=== PATIENT | male | born 1980 | race Caucasian/White ===

== ENCOUNTER 2018-05-11 07:47 | Day surgery (SDC) | payer OTHER ==
[2018-05-11] MEDS ORDERED: PROPOFOL 200 MG/20 ML VIAL As Ordered (08:01)
[2018-05-11] MEDS ORDERED: MOXIFLOXACIN IN BSS 0.25MG/0.25ML INTRACAMERAL INJ (OR EYE ONLY)(J2280) As Ordered (08:07)
[2018-05-11] MEDS ORDERED: POVIDONE-IODINE 5% OPHTH PREP SOL 30ML As Ordered (08:07)
[2018-05-11] MEDS ORDERED: LIDOCAINE 1% SDV 5 ML VIAL As Ordered (08:07)
[2018-05-11] MEDS ORDERED: HEALON DUET (HEALON 10MG/ML 0.55ML & HEALON ENDOCOAT 30MG/ML 0.85ML) As Ordered (08:07)
[2018-05-11] MEDS ORDERED: TRIAMCINOLONE PRES FR 40 MG/ML 1ML(TRIESENCE)(OR EYE ONLY)(J3300 PER 1MG) As Ordered (08:07)
[2018-05-11] MEDS ORDERED: LIDOCAINE 2% INJ 100 MG/5 ML SDV (FOR ANES.) As Ordered (08:08)
[2018-05-11] MEDS: NS 1,000 ML IV (08:13)
== END 2018-05-11 09:32 | disposition home or self-care (01) ==
LOC: M OPP 07:47
DX: R12 Heartburn (principal); R11.0 Nausea; R14.0 Abdominal distension (gaseous); K22.8 Other specified diseases of esophagus; E78.5 Hyperlipidemia, unspecified; E07.9 Disorder of thyroid, unspecified; K21.9 Gastro-esophageal reflux disease without esophagitis; F41.9 Anxiety disorder, unspecified; F32.9 Major depressive disorder, single episode, unspecified; F43.10 Post-traumatic stress disorder, unspecified; K59.00 Constipation, unspecified; R19.7 Diarrhea, unspecified; R56.9 Unspecified convulsions; G47.30 Sleep apnea, unspecified; R06.83 Snoring; Z79.899 Other long term (current) drug therapy
CPT/HCPCS: 43239

== ENCOUNTER 2019-02-16 09:32 | Inpatient (IN) | payer MEDICAID, OTHER ==
[~2019-02-16] VITALS: Ht 170.2 cm; Wt 81.5 kg
[~2019-02-16 09:32] MED LIST: CYMB1CAP5 PO; DEPA500T2 PO; DICL75TA PO; DIVA250T7 PO; FLUO20CA8 PO; IBUP1TAB7 PO; IBUPPOW25 PO; LORA-243 PO; MOTRIN PO; OMEP40CA2 PO; PRAZ1CAP PO; RISP4TAB2 PO; TRAZ-252 PO; ZOLO100T PO
[2019-02-16 11:13] LABS: HEMATOCRIT 41.6 % (42.0-52.0); HEMOGLOBIN 13.7 g/dl (13.5-17.5); MEAN CORPUSCULAR HEMOGLOBIN 28.8 pg (27.0-33.0); MEAN CORPUSCULAR HGB CONC 32.9 g/dl (32.0-36.5); MEAN CORPUSCULAR VOLUME 87.4 fl (80.0-96.0); PLATELET COUNT, AUTOMATED 182 10^3/uL (150-450); RED BLOOD COUNT 4.76 10^6/uL (4.30-6.10); WHITE BLOOD COUNT 4.9 10^3/uL (4.0-10.0)
[2019-02-16 11:48] LABS: AMPHETAMINES LEVEL URINE NEGATIVE (NEGATIVE); BARBITURATES URINE NEGATIVE (NEGATIVE); BENZODIAZEPINES URINE NEGATIVE (NEGATIVE); CANNABINOIDS URINE NEGATIVE (NEGATIVE); COCAINE METABOLITE URINE NEGATIVE (NEGATIVE); METHADONE URINE NEGATIVE (NEGATIVE); OPIATES URINE NEGATIVE (NEGATIVE); PHENCYCLIDINE URINE NEGATIVE (NEGATIVE)
[2019-02-16 11:50] LABS: ACETAMINOPHEN LEVEL < 2.0 UG/ML (10.0-30.0); ALBUMIN 3.7 GM/DL (3.2-5.2); ALT/SGPT 19 U/L (12-78); BILIRUBIN,DIRECT < 0.1 MG/DL (0.0-0.2); BILIRUBIN,TOTAL 0.3 MG/DL (0.2-1.0); BLOOD UREA NITROGEN 21 MG/DL (7-18); CARBON DIOXIDE LEVEL 29 MEQ/L (21-32); CHLORIDE LEVEL 107 MEQ/L (98-107); CREATININE FOR GFR 1.13 MG/DL (0.70-1.30); ETHYL ALCOHOL (ETHANOL) < 0.003 % (0.000-0.010); GLOMERULAR FILTRATION RATE > 60.0 (>60); GLUCOSE, FASTING 94 MG/DL (70-100); POTASSIUM SERUM 4.4 MEQ/L (3.5-5.1); SALICYLATE LEVEL < 1.7 MG/DL (5.0-30.0); SODIUM LEVEL 140 MEQ/L (136-145); TOTAL PROTEIN 6.9 GM/DL (6.4-8.2)
[2019-02-16] MEDS ORDERED: MOM 30ML SUSPENSION UDC PO PRN (15:45)
[2019-02-16] MEDS ORDERED: ACETAMINOPHEN TAB 650MG DOSE (2X325MG) PO PRN (15:45)
[2019-02-16] MEDS ORDERED: MAALOX 30 ML SUSP *UDC PO PRN (15:45)
[2019-02-16 20:49] VITALS: BP 127/72
[2019-02-16] MEDS: traZODone 50 MG TAB PO PRN (21:04)
[2019-02-16] MEDS: risperiDONE 2 MG TAB PO SCH (21:04)
[2019-02-17 06:29] VITALS: BP 119/68
[2019-02-17] MEDS: FLUoxetine 20 MG CAP PO SCH (09:14)
[2019-02-17] MEDS: OMEPRAZOLE 20 MG CAP PO SCH (09:14)
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
[2019-02-17 18:02] VITALS: BP 109/53
[2019-02-17] MEDS: traZODone 50 MG TAB PO PRN (20:17)
[2019-02-17] MEDS: risperiDONE 2 MG TAB PO SCH (20:17)
--- NOTE | 2019-02-17 21:44 | HPEPDOC ---
General Date of Admission Feb 16, 2019 at 15:39 Date of Service: Feb 17, 2019 Chief Complaint The patient is a 39-year-old male admitted with a reason for visit of Depressive Disorder. Source: Patient History of Present Illness 39 yo M with no known PMH was brought in to the inpatient psychiatric unit for suicidal ideation. The patient expressed the wish of killing himself by shooting him. The patient denies any medical or physical history. Currently, the patient does not have any complaints. Home Medications No Active Prescriptions or Reported Meds Allergies Coded Allergies: No Known Allergies (Unverified , 05/04/18) Past Medical History Medical History none Surgical History none Family History family is all healthy per patient Social History * Smoker: Denies Alcohol: Denies Drugs: denies see above A-FIB/CHADSVASC A-FIB History Current/History of A-Fib/PAF?: No Age/Risk Factor Scoring CHADSVASC: CHADSVASC Response (Comments) Value Age Risk Factor Age < 65 years old 0 Gender Risk Factor Male 0 Hx of CHF No 0 Hx of HTN No 0 Hx of Stroke/TIA/or VTE No 0 Hx of Diabetes No 0 Hx of Vascular Disease No 0 Total 0 Review of Systems Constitutional: Denies: Chills, Fever, Malaise, Night Sweats, Weakness, Fatigue, Weight Loss, Lethargy, Other Eyes: Denies: Pain, Vision change, Conjunctivae inflammation, Eyelid inflammation, Redness, Other ENT: Denies: Head Aches, Ear Pain, Dysphagia, Sinus Congestion, Post Nasal Drip, Sore Throat, Epistaxis, Other Symptoms Skin: Denies: Rash, Lesions, Jaundice, Bruising, Itching, Dry, Breakdown, Nail Changes, Other Pulmonary: Denies: Dyspnea, Cough, Pleuritic Chest Pain, Other Symptoms Cardiovascular: Denies: Chest Pain, Palpitations, Orthopnea, Paroxysmal Noc. Dyspnea, Edema, Lt Headedness, Other Symptoms Gastrointestinal: Denies: Nausea, Vomiting, Abdominal Pain, Diarrhea, Constipation, Melena, Hematochezia, Other Symptoms Genitourinary: Denies: Dysuria, Frequency, Incontinence, Hematuria, Retention, Other Symptoms Hematologic: Denies: Bruising, Bleeding Excessively, Petecchia, Purpura, Enlarged Lymph Nodes, Other Hematologic Endocrine: Denies: Polydipsia, Polyphagia, Polyuria, Heat Intolerance, Cold Intolerance, Other Endocrine Sx Musculoskeletal: Denies: Neck Pain, Back Pain, Shoulder Pain, Arm Pain, Hand Pain, Leg Pain, Foot Pain, Joint Pain, Muscle Pain, Spasms, Other Symptoms Neurological: Denies: Weakness, Numbness, Incoordination, Change in speech, Confusion, Seizures, Other Symptoms Psych: Reports: Depression Physical Examination General Exam: Negative: Alert, Cooperative, No Acute Distress, Mild Distress, Moderate Distress, Severe Distress, Other Eye Exam: Negative: PERRLA, Conjunctiva & lids normal, EOMI, Sclera icteric, Ptosis, Other Eye Symptoms ENT Exam: Negative: Atraumatic, Mucous membr. moist/pink, Pharynx Normal, Tongue Midline, Pharyngeal Edema, Nares Patent, Tympanic Membranes Normal, Ext Auditory Canal Nml, Pinna Normal, Other ENT Neck Exam: Negative: Supple, JVD, thyromegaly, +2 carotid pulse wo bruit, Lymphadenopathy, Other Chest Exam: Negative: Clear to auscultation, Normal air movement, Rales, Rhonchi, Wheezing, Diminished, Other Heart Exam: Negative: Rate Normal, Tachycardic, Bradycardic, Regular Rhythm, Irregular Rhythm, Normal S1, Normal S2, Gallops, Murmurs, Rubs, Other Telemetry: Negative: No significant arrhythmia, Sinus, Atrial fibrillation, Tachycardia, Bradycardia, AV Block, Pause, SV Tach, PVCs, PACs, Asystole, Other Telemetry: Abdomen Exam: Negative: Normal bowel sounds, BS Hyperactive, BS Hypoactive, Soft, Tenderness, Hepatospenomegaly, Mass, Hernia, Other Extremity Exam: Negative: Clubbing, Cyanosis, Edema, Normal pulses, Tenderness, Swelling, Other Skin Exam: Negative: Nl turgor and temperature, Rash, Breakdown, Lesion, Pruritus, Other skin issue Neuro Exam: Negative: Normal Gait, Normal Speech, Strength at 5/5 X4 ext, Normal Tone, Sensation Intact, Cranial Nerves 3-12 NL, Reflexes 2+, Other Psych Exam: Negative: Mental status NL, Mood NL, Anxiety, Memory Intact, Oriented x 3, Other Vital Signs Vital Signs Date Time Temp Pulse Resp B/P (MAP) Pulse Ox O2 Delivery O2 Flow Rate FiO2 02/17/19 18:02 99.9 77 16 109/53 (71) 02/16/19 20:49 99 02/16/19 19:52 Room Air Problems (1) Suicidal ideation Problem Text: The patient does not have any active medical issues or complaints. I do not see the patient hospitalized in the mental health unit. Please refer to the psychiatry team's management for his psychiatric disorder. Plan / VTE VTE Prophylaxis Ordered?: No CHRISTOS HASTINGS MD Feb 17, 2019 21:44
[2019-02-18 06:45] VITALS: BP 117/66
[2019-02-18] MEDS: FLUoxetine 20 MG CAP PO SCH (08:39)
[2019-02-18] MEDS: OMEPRAZOLE 20 MG CAP PO SCH (08:39)
[2019-02-18 09:31] LABS: CHOLESTEROL RISK RATIO 4.545 (<5)
[2019-02-18 18:03] VITALS: BP 102/59
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
[2019-02-18] MEDS: traZODone 50 MG TAB PO PRN (20:20)
[2019-02-18] MEDS: risperiDONE 2 MG TAB PO SCH (20:21)
[2019-02-19 06:43] VITALS: BP 101/59
[2019-02-19] MEDS: OMEPRAZOLE 20 MG CAP PO SCH (08:29)
[2019-02-19] MEDS: FLUoxetine 20 MG CAP PO SCH (08:29)
[2019-02-19 18:04] VITALS: BP 105/57
[2019-02-19] MEDS: risperiDONE 2 MG TAB PO SCH (20:39)
[2019-02-19] MEDS: traZODone 50 MG TAB PO PRN (20:39)
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
[2019-02-20 06:36] VITALS: BP 112/64
[2019-02-20 06:37] VITALS: BP 140/79
[2019-02-20] MEDS: OMEPRAZOLE 20 MG CAP PO SCH (08:15)
[2019-02-20] MEDS: FLUoxetine 20 MG CAP PO SCH (08:15)
--- NOTE | 2019-02-20 16:57 | MHIPNPDOC ---
[facility] Progress Note Progress Note DATE OF SERVICE: 02/20/19 HISTORY: Patient presently treated with Risperdal and fluoxetine by Dr. alfred with symptoms of posttraumatic stress disorder and carrying diagnosis of bipolar disorder, possible schizophrenia. VITAL SIGNS: See below. NEW TEST RESULTS: None. CURRENT MEDICATIONS: See below. MENTAL STATUS EXAMINATION: Patient is a 39-year old male, who is was seen at the OR. Speech: Is normal. Language skills are. Normal. Thought processes including: No obvious disturbance of thought process. Thought content:, No obvious disturbance of thought content. Abstract reasoning, and computation:, Able to abstract. Description of associations:no Loose association. Description of abnormal or psychotic thoughts: No reported psychotic thoughts. Judgment:, Poor. Insight:, Poor. Orientation: Intact 3. Recent and remote memory:. Intact. Attention span and concentration: Intact. Language:. No disturbance. Fund of knowledge: Intact. Mood:. Euthymic. Affect:, Congruent. DIAGNOSES: 1. Schizoaffective disorder. 2., PTSD. 3., Rule out bipolar disorder. ASSESSMENT:. As above MANAGEMENT PLAN:, Further examination and review of history. TIME SPENT:, 35 minutes. Vital Signs Vital Signs Date Time Temp Pulse Resp B/P (MAP) Pulse Ox O2 Delivery O2 Flow Rate FiO2 02/20/19 06:36 98.1 90 14 112/64 (80) 02/16/19 20:49 99 02/16/19 19:52 Room Air Current Medications Current Medications Acetaminophen (Tylenol Tab) 650 mg Q6HP PRN PO HEADACHE or DISCOMFORT Last administered on 02/17/19at 20:17; Start 02/16/19 at 15:45 Al Hydrox/Mg Hydrox/Simethicone (Mylanta) 30 ml Q4HP PRN PO HEARTBURN/INDIGESTION; Start 02/16/19 at 15:45 Fluoxetine HCl (PROzac) 60 mg DAILY PO Last administered on 02/20/19at 08:15; Start 02/17/19 at 09:00 Home Med (Med Rec Complete!) ASDIRECTED XX ; Start 02/16/19 at 14:45; Stop 02/16/19 at 14:57; Status DC Magnesium Hydroxide (Milk Of Magnesia) 30 ml DAILYPRN PRN PO CONSTIPATION; Start 02/16/19 at 15:45 Omeprazole (PriLOSEC) 40 mg DAILY PO Last administered on 02/20/19at 08:15; Start 02/17/19 at 09:00 Risperidone (RisperDAL) 4 mg QHS PO Last administered on 02/19/19at 20:39; Start 02/16/19 at 21:00 Trazodone HCl (Desyrel) 50 mg QHSP PRN PO INSOMNIA Last administered on 02/19/19at 20:39; Start 02/16/19 at 15:45 Allergies Coded Allergies: No Known Allergies (Unverified , 05/04/18) HONEY RICHTER MD Feb 20, 2019 16:57
[2019-02-20 18:00] VITALS: BP 117/67
[2019-02-20] MEDS: risperiDONE 2 MG TAB PO SCH (20:16)
[2019-02-20] MEDS: traZODone 50 MG TAB PO PRN (20:16)
[2019-02-21 06:31] VITALS: BP 104/59
[2019-02-21] MEDS: OMEPRAZOLE 20 MG CAP PO SCH (08:17)
[2019-02-21] MEDS: FLUoxetine 20 MG CAP PO SCH (08:17)
--- NOTE | 2019-02-21 11:51 | MHIPNPDOC ---
[facility] Progress Note Progress Note DATE OF SERVICE: 02/21/19 HISTORY: 39-year-old with 2 recent hospitalizations that included symptoms of depression, hallucinations and suggestions of violence to others as well as suicide. VITAL SIGNS: See below. NEW TEST RESULTS: . CURRENT MEDICATIONS: See below. MENTAL STATUS EXAMINATION: Patient is a 39-year old male, who is treated for depression with psychotic features. He has a diagnosis previously of bipolar disorder with PTSD, but appears with flat affect and stilted speech too impressed both his physician and myself as having symptoms of schizophrenia. Speech: Is slow. Language skills are essentially intact. Thought processes including:. History of hallucinations and of command hallucinations leading patients to consider shooting himself. Thought content: Hallucinations and depression. Abstract reasoning, and computation:, Poor. Description of associations:, No loose associations. Description of abnormal or psychotic thoughts: History of hallucinations of paranoid nature. Judgment:. Poor. Insight: Poor. Orientation: Intact 3. Recent and remote memory:. Memory deficits noted. Attention span and concentration: Essentially intact. Language: As above. Fund of knowledge:, Intact. Mood: Euthymic. Affect:, Flat. DIAGNOSES: 1. Schizoaffective disorder. 2., Noncompliance with medication. 3. Possible PTSD. ASSESSMENT: Patient does not yet appear to me to be well though he says he is improved with mood and has no further hallucinations, but due to his recent history, further observation will be needed MANAGEMENT PLAN: As above. TIME SPENT: 35 minutes. Vital Signs Vital Signs Date Time Temp Pulse Resp B/P (MAP) Pulse Ox O2 Delivery O2 Flow Rate FiO2 02/21/19 06:31 97.7 80 12 104/59 (74) 02/16/19 20:49 99 02/16/19 19:52 Room Air Current Medications Current Medications Acetaminophen (Tylenol Tab) 650 mg Q6HP PRN PO HEADACHE or DISCOMFORT Last administered on 02/17/19at 20:17; Start 02/16/19 at 15:45 Al Hydrox/Mg Hydrox/Simethicone (Mylanta) 30 ml Q4HP PRN PO HEARTBURN/INDIGESTION; Start 02/16/19 at 15:45 Fluoxetine HCl (PROzac) 60 mg DAILY PO Last administered on 02/21/19at 08:17; Start 6/7/19 at 09:00 Home Med (Med Rec Complete!) ASDIRECTED XX ; Start 02/16/19 at 14:45; Stop 02/16/19 at 14:57; Status DC Magnesium Hydroxide (Milk Of Magnesia) 30 ml DAILYPRN PRN PO CONSTIPATION; Start 02/16/19 at 15:45 Omeprazole (PriLOSEC) 40 mg DAILY PO Last administered on 02/21/19at 08:17; Start 02/17/19 at 09:00 Risperidone (RisperDAL) 4 mg QHS PO Last administered on 02/20/19at 20:16; Start 02/16/19 at 21:00 Trazodone HCl (Desyrel) 50 mg QHSP PRN PO INSOMNIA Last administered on 02/20/19at 20:16; Start 02/16/19 at 15:45 Allergies Coded Allergies: No Known Allergies (Unverified , 05/04/18) HONEY RICHTER MD Feb 21, 2019 11:51
[2019-02-21 18:00] VITALS: BP 119/68
[2019-02-21] MEDS: risperiDONE 2 MG TAB PO SCH (20:10)
[2019-02-21] MEDS: traZODone 50 MG TAB PO PRN (20:10)
[2019-02-22 06:36] VITALS: BP 97/64
[2019-02-22] MEDS: FLUoxetine 20 MG CAP PO SCH (08:27)
[2019-02-22] MEDS: OMEPRAZOLE 20 MG CAP PO SCH (08:27)
--- NOTE | 2019-02-22 10:56 | MHIPNPDOC ---
[facility] Progress Note Progress Note DATE OF SERVICE: 02/22/19 HISTORY: Patient had been noncompliant with medications and began to experience psychotic symptoms leading to aggressive behavior. Patient states I want to be in my room and away from people and I am frightened of small spaces VITAL SIGNS: See below. NEW TEST RESULTS:, None. CURRENT MEDICATIONS: See below. MENTAL STATUS EXAMINATION: Patient is a, 39-year old male, who is, showing improvement with decreased psychotic symptoms but continues to have flat affect. Speech: Is slow. Language skills are, intact. Thought processes including: Denies gross abnormalities at this time. Thought content:. Denies gross abnormalities. Abstract reasoning, and computation:, Poor. Description of associations:. No loose associations. Description of abnormal or psychotic thoughts:. Psychotic thought, by history, and on admission. Judgment:, Fair. Insight:, Limited. Orientation:, Intact 3. Recent and remote memory: Intact. Attention span and concentration:, Intact. Language:, As above. Fund of knowledge:, Intact. Mood:, Euthymic. Affect: Flat. DIAGNOSES: 1. Schizoaffective disorder. 2. Marital stressors. 3., Noncompliance with medication. ASSESSMENT: Patient is in an improved state but appears flat and seclusive. Outpatient treatment recommended for possible improvement in symptoms MANAGEMENT PLAN:. Will discharge to outpatient treatment and to home. TIME SPENT: 35 minutes. Vital Signs Vital Signs Date Time Temp Pulse Resp B/P (MAP) Pulse Ox O2 Delivery O2 Flow Rate FiO2 02/22/19 06:36 97.5 85 14 97/64 (75) 02/16/19 20:49 99 02/16/19 19:52 Room Air Current Medications Current Medications Acetaminophen (Tylenol Tab) 650 mg Q6HP PRN PO HEADACHE or DISCOMFORT Last administered on 02/17/19at 20:17; Start 02/16/19 at 15:45 Al Hydrox/Mg Hydrox/Simethicone (Mylanta) 30 ml Q4HP PRN PO HEARTBURN/INDIGESTION; Start 02/16/19 at 15:45 Fluoxetine HCl (PROzac) 60 mg DAILY PO Last administered on 02/22/19at 08:27; Start 02/17/19 at 09:00 Home Med (Med Rec Complete!) ASDIRECTED XX ; Start 02/16/19 at 14:45; Stop 02/16/19 at 14:57; Status DC Magnesium Hydroxide (Milk Of Magnesia) 30 ml DAILYPRN PRN PO CONSTIPATION; Start 02/16/19 at 15:45 Omeprazole (PriLOSEC) 40 mg DAILY PO Last administered on 02/22/19at 08:27; Start 02/17/19 at 09:00 Risperidone (RisperDAL) 4 mg QHS PO Last administered on 02/21/19at 20:10; Start 02/16/19 at 21:00 Trazodone HCl (Desyrel) 50 mg QHSP PRN PO INSOMNIA Last administered on 02/21/19at 20:10; Start 02/16/19 at 15:45 Allergies Coded Allergies: No Known Allergies (Unverified , 05/04/18) HONEY RICHTER MD Feb 22, 2019 10:56
[2019-02-22 18:00] VITALS: BP 113/56
[2019-02-22] MEDS: risperiDONE 2 MG TAB PO SCH (20:16)
[2019-02-22] MEDS: traZODone 50 MG TAB PO PRN (20:17)
[2019-02-23] MEDS ORDERED: OMEP-218 PO (07:18)
[2019-02-23] MEDS ORDERED: FLUO20CA19 PO (07:18)
[2019-02-23] MEDS ORDERED: RISP2TAB32 PO (07:18)
[2019-02-23] MEDS ORDERED: TRAZ-252 PO (07:18)
[2019-02-23] MEDS: OMEPRAZOLE 20 MG CAP PO SCH (08:37)
[2019-02-23] MEDS: FLUoxetine 20 MG CAP PO SCH (08:37)
--- NOTE | 2019-02-23 15:13 | MHIPNPDOC ---
[facility] Progress Note Progress Note DATE OF SERVICE: 02/23/19 HISTORY: 39-year-old male who had stopped his medications and become violent and paranoid. VITAL SIGNS: See below. NEW TEST RESULTS: None. CURRENT MEDICATIONS: See below. MENTAL STATUS EXAMINATION: Patient is a 39-year old male, who is still isolating himself but he states this is normal for him. He denies hallucinations, delusions, paranoia. Speech: Is, intact. Language skills are, intact. Thought processes including:. Denies hallucinations and delusions at this time. Thought content: . Abstract reasoning, and computation: Is able to. Description of associations: No loose association. Description of abnormal or psychotic thoughts:. No psychotic or abnormal thought noted or described. Judgment: Fair. Insight:, Fair. Orientation: Intact 3. Recent and remote memory:. Intact. Attention span and concentration: Intact. Language: As above. Fund of knowledge:, Full. Mood:, Neutral. Affect:, Congruent. DIAGNOSES: 1.. Schizophrenia. 2., Noncompliance. 3., Family life stressors. ASSESSMENT:. Patient though treated previously for depression and mood disorder seems to be demonstrating symptoms of undifferentiated schizophrenia MANAGEMENT PLAN: Plan is to discharge patient to outpatient care. TIME SPENT: 35 minutes. Vital Signs Vital Signs Date Time Temp Pulse Resp B/P (MAP) Pulse Ox O2 Delivery O2 Flow Rate FiO2 02/23/19 06:55 98.2 72 14 02/22/19 18:00 113/56 (75) Current Medications Current Medications Acetaminophen (Tylenol Tab) 650 mg Q6HP PRN PO HEADACHE or DISCOMFORT Last administered on 02/17/19at 20:17; Start 02/16/19 at 15:45 Al Hydrox/Mg Hydrox/Simethicone (Mylanta) 30 ml Q4HP PRN PO HEARTBURN/INDIGESTION; Start 02/16/19 at 15:45 Fluoxetine HCl (PROzac) 60 mg DAILY PO Last administered on 02/23/19at 08:37; Start 02/17/19 at 09:00 Home Med (Med Rec Complete!) ASDIRECTED XX ; Start 02/16/19 at 14:45; Stop 02/16/19 at 14:57; Status DC Magnesium Hydroxide (Milk Of Magnesia) 30 ml DAILYPRN PRN PO CONSTIPATION; Start 02/16/19 at 15:45 Omeprazole (PriLOSEC) 40 mg DAILY PO Last administered on 02/23/19at 08:37; Start 02/17/19 at 09:00 Risperidone (RisperDAL) 4 mg QHS PO Last administered on 02/22/19at 20:16; Start 02/16/19 at 21:00 Trazodone HCl (Desyrel) 50 mg QHSP PRN PO INSOMNIA Last administered on 02/22/19at 20:17; Start 02/16/19 at 15:45 Allergies Coded Allergies: No Known Allergies (Unverified , 05/04/18) HONEY RICHTER MD Feb 23, 2019 15:13
[2019-02-23 18:00] VITALS: BP 118/54
[2019-02-23] MEDS: traZODone 50 MG TAB PO PRN (20:10)
[2019-02-23] MEDS: risperiDONE 2 MG TAB PO SCH (20:10)
[2019-02-24 07:00] VITALS: BP 111/53
--- NOTE | 2019-02-24 07:16 | MHDSPDOC ---
[facility] Discharge Summary Discharge Summary DATE OF ADMISSION: Feb 16, 2019 at 15:39 DATE OF DISCHARGE: Feb DISCHARGE DIAGNOSES: 1. Schizoaffective disorder. 2., Family stressors and noncompliance. REASON FOR ADMISSION: Patient had auditory hallucinations and be came threatening following not taking his medication CONSULTANTS INVOLVED: None TREATMENT AND PROGRESS ON THE UNIT :. Patient was treated with Abilify and fluoxetine and remained isolative, which she states has been his lifestyle HOSPITAL COURSE: Patient cooperated with treatment and paranoia and auditory hallucinations diminished DISCHARGE ASSESSMENT:. The patient was diagnosed as having affective disorder, previously. However, impression, based on his flat affect. His paranoia and isolative behavior, pointed more to a schizophrenic presentation MENTAL STATUS EXAMINATION ON DISCHARGE: Patient is a 39-year old male, who is to be discharged today to outpatient care. Speech is slow. Language skills are, intact. Thought processes including: Previous auditory hallucinations and paranoid thought. Thought content:. Presently denies auditory hallucinations and paranoid thought. Abstract reasoning, and computation:, Able to abstract and compute. Description of associations:. No loose associations. Description of abnormal or psychotic thoughts:. Psychotic thought. Now denied following treatment. Judgment: Fair. Insight:. Poor. Orientation to intact 3. Recent and remote memory:. Intact. Attention span and concentration:, Poor. Language:, As above. Fund of knowledge:, Full. Mood:, Euthymic. Affect:, Flat. MEDICATIONS ON DISCHARGE: -Abilify for psychotic thought. -Fluoxetine for depressed mood. PLAN/FOLLOWUP ARRANGEMENTS: Follow-up as per discharge team. The amount of time spent in the coordination of care for this patient was approximately 35 minutes. Vital Signs/I&Os Vital Signs Date Time Temp Pulse Resp B/P (MAP) Pulse Ox O2 Delivery O2 Flow Rate FiO2 02/23/19 18:00 99.4 81 16 118/54 (75) Medications Scheduled Fluoxetine Hcl (Fluoxetine HCl) 20 Mg Capsule, 60 MG PO DAILY for Depression for 10 Days, #30 Omeprazole (Omeprazole) 20 Mg Capsule.dr, 40 MG PO DAILY for Acid Reflux for 10 Days, #20 Risperidone (Risperdal) 2 Mg Tablet, 4 MG PO QHS for Depression for 10 Days, #20 Scheduled PRN Trazodone HCl (Trazodone HCl) 50 Mg Tablet, 50 MG PO QHSP PRN for INSOMNIA for 10 Days, #10 Allergies Coded Allergies: No Known Allergies (Unverified , 05/04/18) HONEY RICHTER MD Feb 24, 2019 07:16
[2019-02-24] MEDS: FLUoxetine 20 MG CAP PO SCH (08:26)
[2019-02-24] MEDS: OMEPRAZOLE 20 MG CAP PO SCH (08:26)
== END 2019-02-24 09:50 | disposition home or self-care (01) | DRG 750 ==
LOC: M ED 09:32 → M ED INP 15:39 → M PSY 20:02
PROVIDERS: ADMIT Psychiatry & Neurology Psychiatry; ATTEND Psychiatry & Neurology Child & Adolescent Psychiatry
DX: F25.9 Schizoaffective disorder, unspecified (principal); Z91.82 Personal history of military deployment; Z91.5 Personal history of self-harm; K21.9 Gastro-esophageal reflux disease without esophagitis; F43.10 Post-traumatic stress disorder, unspecified; Z63.8 Other specified problems related to primary support group; Z91.14 Patient's other noncompliance with medication regimen; Z63.0 Problems in relationship with spouse or partner

== ENCOUNTER → 2020-05-23 | Outpatient (CLI) | payer OTHER ==
[~2020-05-23] MED LIST changes: +FLUO20CA20 PO; +FLUO20CA22 PO; -FLUO20CA8 PO; +OMEP-218 PO; -OMEP40CA2 PO; +OMEP40CA97 PO; +RISP2TAB32 PO
--- NOTE | 2020-05-25 20:52 | ECHO ---
DATE OF PROCEDURE: 05/23/2020 Age: Gender: Male Height: 170 cm Weight: 81 kg REFERRING PHYSICIAN: Julien Prieto MD INDICATION: Mixed hyperlipidemia. MEASUREMENTS: Dimensions: IV 1.1 LV 5.0 LVPW 1.1 LA 3.3 Aorta 2.7 IVC 1.8 Mitral E wave velocity 102, A wave 35 E prime septal 9.5 E prime lateral 17.0 FINDINGS: The study is of good technical quality. The patient is in sinus rhythm. Left ventricle has normal size and contractility. Estimated left ventricular ejection fraction (LVEF) 65 to 70%. No segmental wall motion abnormalities are appreciated. Right ventricle is also normal size and systolic function. Both atria appear normal. All four cardiac valves were reasonably well seen and appear normal. No pericardial effusion is present. Inferior vena cava is of normal size and almost completely collapses in inspiration indicative of normal central venous pressure. Aortic root, visualized segment of aortic arch and abdominal aorta appear normal. Doppler interrogation reveals competent aortic valve. There is also no significant mitral stenosis or insufficiency. Trace tricuspid insufficiency is seen, calculated pulmonary artery pressure is in high 20s corresponding to upper limits of normal values. Pulmonic valve is functionally competent. Mitral inflow pattern and tissue Doppler imaging of mitral annulus reveal normal diastolic function. CONCLUSIONS: 1. Study is of good technical quality. The patient is in sinus rhythm. 2. Normal LV size, systolic and diastolic function. 3. No valvular disease. 4. Likely normal central venous pressure, normal pulmonary artery pressure. COMMENTS: Essentially normal echocardiogram. [facility]
== END ==
LOC: M CARPUL 14:15
PROVIDERS: ATTEND Internal Medicine
DX: E78.2 Mixed hyperlipidemia (principal); G56.00 Carpal tunnel syndrome, unspecified upper limb; K21.9 Gastro-esophageal reflux disease without esophagitis; F33.41 Major depressive disorder, recurrent, in partial remission; G47.33 Obstructive sleep apnea (adult) (pediatric)

== ENCOUNTER 2022-03-18 15:52 | Emergency (ER) | payer OTHER ==
[~2022-03-18] VITALS: Ht 170.2 cm; Wt 91.9 kg
[~2022-03-18 15:52] MED LIST changes: +FLUO-96 PO; -FLUO20CA20 PO; +OMEP-173 PO; -OMEP-218 PO; +OMEP40CA4 PO; -OMEP40CA97 PO; +RISP-11 PO; -RISP4TAB2 PO; +ROSU40TA4 PO; +TERB1CRE2
[2022-03-18] MEDS ORDERED: LEXA1TAB2 PO (16:00)
[2022-03-18 17:11] LABS: RSV AMPLIFICATION NEGATIVE (NEGATIVE)
[2022-03-18] MEDS ORDERED: PSEU30TA86 PO (18:39)
[2022-03-18] MEDS ORDERED: PRED20TA PO (18:41)
[2022-03-18 18:57] VITALS: BP 141/85
== END 2022-03-18 18:58 | disposition home or self-care (01) ==
LOC: M ED 15:52
DX: J06.9 Acute upper respiratory infection, unspecified (principal); Z79.899 Other long term (current) drug therapy

== ENCOUNTER 2022-08-21 15:46 | Emergency (ER) | payer OTHER ==
[~2022-08-21] VITALS: Ht 182.9 cm; Wt 88.2 kg
[~2022-08-21 15:46] MED LIST changes: +LEXA1TAB2 PO; +PRED20TA PO; +PSEU30TA86 PO
[2022-08-21 15:47] VITALS: BP 117/73
== END 2022-08-21 19:52 | disposition left against medical advice (07) ==
LOC: M ED 15:46
DX: Z53.21 Procedure and treatment not carried out due to patient leaving prior to being seen by health care provider (principal)

== ENCOUNTER 2024-01-26 15:35 | Emergency (ER) | payer OTHER ==
[~2024-01-26] VITALS: Ht 170.2 cm; Wt 89.2 kg
[~2024-01-26 15:35] MED LIST changes: -PSEU30TA86 PO; +PSEU30TA87 PO; -RISP-11 PO; +RISP4TAB95 PO; -ROSU40TA4 PO; +ROSU40TA63 PO
[2024-01-26] MEDS ORDERED: FERR325T3 PO (15:45)
[2024-01-26] MEDS ORDERED: FAMO40TA3 PO (15:45)
[2024-01-26] MEDS ORDERED: SERT-141 PO (15:45)
[2024-01-26] MEDS ORDERED: PRAZ1CAP PO (15:45)
[2024-01-26] MEDS ORDERED: BUPR-69 PO (15:45)
[2024-01-26 17:14] LABS: BASO # 0.1 10^3/uL (0.0-0.2); BASO % 0.9 % (0.0-1.0); EOS # 0.1 10^3/uL (0.0-0.5); EOS % 1.1 % (0.0-3.0); HEMATOCRIT 41.5 % (42.0-52.0); HEMOGLOBIN 14.2 g/dl (13.5-17.5); LYMPH # 1.9 10^3/uL (1.5-5.0); LYMPH % 29.2 % (24.0-44.0); MEAN CORPUSCULAR HEMOGLOBIN 29.8 pg (27.0-33.0); MEAN CORPUSCULAR HGB CONC 34.2 g/dl (32.0-36.5); MONO # 0.6 10^3/uL (0.0-0.8); MONO % 8.7 % (2.0-8.0); NEUTROPHILS # 3.9 10^3/uL (1.5-8.5); NEUTROPHILS % 59.9 % (36.0-66.0); PLATELET COUNT, AUTOMATED 212 10^3/uL (150-450); RED BLOOD COUNT 4.77 10^6/uL (4.30-6.10); WHITE BLOOD COUNT 6.6 10^3/uL (4.0-10.0)
[2024-01-26 17:33] LABS: LIPASE 25 U/L (12-53)
[2024-01-26 17:35] LABS: ALBUMIN 3.9 G/DL (3.2-5.2); ALKALINE PHOSPHATASE 92 U/L (46-116); ALT/SGPT 22 U/L (7.0-40); AST/SGOT 24 U/L (<34); BILIRUBIN,DIRECT 0.1 MG/DL (<0.4); BILIRUBIN,TOTAL 0.3 MG/DL (0.3-1.2); BLOOD UREA NITROGEN 18 MG/DL (9-23); CALCIUM LEVEL 9.3 MG/DL (8.5-10.1); CARBON DIOXIDE LEVEL 24 MMOL/L (20-31); CHLORIDE LEVEL 106 MMOL/L (98-107); CREATININE FOR GFR 1.27 MG/DL (0.70-1.30); GLOMERULAR FILTRATION RATE > 60.0 (>60); GLUCOSE, FASTING 87 MG/DL (60-100); POTASSIUM SERUM 3.9 MMOL/L (3.5-5.1); SODIUM LEVEL 139 MMOL/L (136-145); TOTAL PROTEIN 6.9 G/DL (5.7-8.2)
[2024-01-26] MEDS ORDERED: ISOVUE-370 76% 100ML VIAL As Ordered ONE (19:05)
[2024-01-26] MEDS ORDERED: PRED20TA PO (21:23)
[2024-01-26 21:30] VITALS: BP 111/74; TEMP 97.7; O2SAT 98
[2024-01-26] MEDS: predniSONE 20 MG TAB PO ONE (21:30)
== END 2024-01-26 21:32 | disposition home or self-care (01) ==
LOC: M ED 15:35
DX: A04.8 Other specified bacterial intestinal infections (principal); K21.9 Gastro-esophageal reflux disease without esophagitis; E78.5 Hyperlipidemia, unspecified; G40.89 Other seizures; G47.33 Obstructive sleep apnea (adult) (pediatric); Z79.899 Other long term (current) drug therapy; Z79.52 Long term (current) use of systemic steroids
CPT/HCPCS: 36415; 74177; 80048; 80076; 82270; 83690; 85025; 86850; 86900; 86901; 87507; 99284; J7512; Q9967

== ENCOUNTER 2024-11-29 08:38 | Day surgery (SDC) | payer OTHER ==
[~2024-11-29] VITALS: Ht 170.2 cm; Wt 86.1 kg
[~2024-11-29 08:38] MED LIST changes: +BUPR-69 PO; +COQ150CH PO; +FAMO40TA3 PO; +FERR325T3 PO; +FLUO-365 PO; -FLUO20CA22 PO; +PRES10CA2 PO; -ROSU40TA63 PO; +ROSU40TA81 PO; +SERT-141 PO; +THERTAB52 PO
[2024-11-29 09:35] VITALS: TEMP 97.3
[2024-11-29 10:05] VITALS: BP 108/55; O2SAT 94
[2024-11-29] MEDS ORDERED: propofoL 200 MG/20 ML VIAL As Ordered ONE (13:50)
[2024-11-29] MEDS ORDERED: LIDOCAINE 2% 100MG/5ML SDV (FOR ANES.) As Ordered ONE (13:50)
== END 2024-11-29 10:13 | disposition home or self-care (01) ==
LOC: M OPP 08:38
PROVIDERS: ATTEND Surgery
DX: K63.89 Other specified diseases of intestine (principal); R10.84 Generalized abdominal pain; K62.5 Hemorrhage of anus and rectum; K21.00 Gastro-esophageal reflux disease with esophagitis, without bleeding; K22.89 Other specified disease of esophagus; K44.9 Diaphragmatic hernia without obstruction or gangrene; K31.89 Other diseases of stomach and duodenum; K30 Functional dyspepsia; G47.30 Sleep apnea, unspecified; Z79.899 Other long term (current) drug therapy

== ENCOUNTER 2024-12-22 06:20 | Day surgery (SDC) | payer OTHER ==
[~2024-12-22] VITALS: Ht 170.2 cm; Wt 86.8 kg
[~2024-12-22 06:20] MED LIST changes: +EZET10TA58 PO
[2024-12-22] MEDS ORDERED: LR 1,000 ML IV SCH (06:50)
[2024-12-22] MEDS ORDERED: fentaNYL 100 MCG/2 ML INJECTION As Ordered ONE (06:58)
[2024-12-22] MEDS ORDERED: LIDOCAINE 2% 100MG/5ML SDV (FOR ANES.) As Ordered ONE (06:58)
[2024-12-22] MEDS ORDERED: propofoL 200 MG/20 ML VIAL As Ordered ONE (06:58)
[2024-12-22] MEDS ORDERED: ROCURONIUM BROMIDE 50MG/5ML VIAL As Ordered ONE (06:58)
[2024-12-22] MEDS ORDERED: MIDAZOLAM INJ 2MG/2ML VIAL As Ordered ONE (06:58)
[2024-12-22] MEDS ORDERED: ONDANSETRON 4MG 2ML VIAL As Ordered ONE (06:58)
[2024-12-22] MEDS: CelecoXIB 400 MG CAP PO ONE (07:00)
[2024-12-22] MEDS ORDERED: HYDROmorphone HCL 2MG/ML 1ML VIAL As Ordered ONE (07:34)
[2024-12-22] MEDS: ceFAZolin SOD 2 GM IV ONCE IV ONE (07:45)
[2024-12-22] MEDS ORDERED: KETOROLAC 30 MG/ML 1ML VIAL As Ordered ONE (08:24)
[2024-12-22] MEDS ORDERED: ACETAMINOPHEN 1000MG/100ML IV BAG As Ordered ONE (08:24)
[2024-12-22] MEDS ORDERED: SUGAMMADEX SODIUM 500 MG/5 ML VIAL (BRIDION) As Ordered ONE (08:28)
[2024-12-22] MEDS: LIDOCAINE 1% SDV 30ML VIAL As Ordered ONE (08:35)
[2024-12-22] MEDS ORDERED: fentaNYL 100 MCG/2 ML INJECTION IV PRN (08:35)
[2024-12-22] MEDS: oxyCODONE 5MG TAB PO PRN (09:03)
[2024-12-22] MEDS: HYDROMORPHONE HCL 0.5 MG/ 0.5 ML SYRINGE IV PRN (09:04)
[2024-12-22] MEDS: ONDANSETRON 4MG 2ML VIAL IV PRN (09:04)
[2024-12-22 09:35] VITALS: BP 110/66; TEMP 97.6
[2024-12-22 10:10] VITALS: O2SAT 96
== END 2024-12-22 10:40 | disposition home or self-care (01) ==
LOC: M SDC 06:20
PROVIDERS: ATTEND Surgery
DX: K42.0 Umbilical hernia with obstruction, without gangrene (principal); G47.30 Sleep apnea, unspecified; Z79.899 Other long term (current) drug therapy
CPT/HCPCS: 49594; J0131; J0665; J0690; J1100; J1171; J1885; J2250; J2405